=== PATIENT | female | born 1955 | race Caucasian/White ===

== ENCOUNTER 2021-01-08 00:40 | Inpatient (IN) | payer BC, OTHER ==
[2021-01-08] VITALS (7 sets, daily range): BP systolic 132–164; BP diastolic 55–90
[~2021-01-08] VITALS: Ht 167.6 cm; Wt 84.8 kg
[~2021-01-08 00:40] MED LIST: CIPRO500 MG PO; CLINDAMYCIN HC150 MG PO; DEPAKOTE ER500 MG PO; DEPAKOTE125 MG; GLIMEPIRIDE2 MG PO; LANTUS100 UNITS/ SQ; LEVAQUIN250 MG PO; LISINOPRIL2.5 MG PO; METFORMIN HCL500 MG PO; METOCLOPRAMIDE10 MG PO; MIDODRINE HCL2.5 MG PO; RENVELA800 MG PO; SENOKOT-S TABL1 EACH PO
[2021-01-08] MEDS: FENTANYL CITRATE/PF 100MCG/2 ML INJ IV PRN ×2 (02:10→04:04)
[2021-01-08 03:09] LABS: BASOPHILS # (AUTO) 0.1 (0.0-0.1); BASOPHILS % 0.6 % (0.0-1.0); EOSINOPHILS # (AUTO) 0.1 (0.0-0.4); EOSINOPHILS % 1.4 % (0.0-6.0); HEMATOCRIT 25.5 % (34.2-44.1); LYMPHOCYTES # (AUTO) 0.7 (1.0-3.2); LYMPHOCYTES % 8.8 % (18.0-39.1); MEAN CORPUSCULAR HGB CONC 31.4 g/dL (31-35); MEAN CORPUSCULAR VOLUME 95.5 fL (81-99); MONOCYTES # (AUTO) 0.4 (0.2-0.8); MONOCYTES % 4.9 % (4.4-11.3); NEUTROPHILS # (AUTO) 6.8 (2.1-6.9); NEUTROPHILS % 84.1 % (38.7-80.0); PLATELET COUNT 222 x10e3/uL (140-360); RED BLOOD COUNT 2.67 x10e6/uL (3.6-5.1); RED CELL DISTRIBUTION WIDTH 12.8 % (11.7-14.4)
[2021-01-08 03:19] LABS: INR 0.99; PROTHROMBIN TIME 13.7 seconds (11.9-14.5)
[2021-01-08] MEDS: SODIUM CHLORIDE 0.9% 1000ML 1,000 ML IV SCH ×3 (03:24→17:38)
[2021-01-08 03:28] LABS: ALBUMIN 3.4 g/dL (3.5-5.0); ALBUMIN/GLOBULIN RATIO 0.8 (0.8-2.0); ANION GAP 16.3 mmol/L (8-16); CALCIUM 8.5 mg/dL (8.4-10.2); CREATININE, SERUM 2.54 mg/dL (0.57-1.11); POTASSIUM 4.3 mmol/L (3.5-5.1)
[2021-01-08] MEDS ORDERED: LOPRESSOR25 MG PO (06:39)
[2021-01-08] MEDS ORDERED: GLIMEPIRIDE2 MG PO (06:39)
[2021-01-08 07:55] LABS: CHOL/HDL RATIO 5.1 (3.0-3.6)
[2021-01-08] MEDS: HYDROMORPHONE 1MG/1ML INJ IV PRN ×2 (08:00→19:10)
[2021-01-08] MEDS: ONDANSETRON HCL INJ 2MG/ML 2ML 2 MG/ML VIAL IV PRN (08:00)
[2021-01-08 08:05] LABS: % IRON SATURATION 5 % (15-50); IRON 15 ug/dL (50-170); TOTAL IRON BINDING CAPACITY 308 ug/dL (261-478); TRANSFERRIN 220 mg/dL (180-382)
[2021-01-08] MEDS ORDERED: HYDRALAZINE HCL25 MG PO (10:57)
[2021-01-08] MEDS ORDERED: ACTOS15 MG PO (10:57)
[2021-01-08] MEDS ORDERED: DEXTROSE 50% SYRINGE 50 ML IV PRN (11:30)
[2021-01-08] MEDS: METOPROLOL TARTRATE 25 MG TAB PO SCH ×2 (12:34→20:33)
[2021-01-08] MEDS: INSULIN LISPRO 100 UNIT/1 ML 3ML VIAL SQ SCH ×3 (12:45→21:00)
[2021-01-08] MEDS: IRON SUCROSE 100 MG in SODIUM CHLORIDE 0.9% 100 ML 100 ML IV SCH (15:43)
[2021-01-08] MEDS ORDERED: SODIUM CHLORIDE 0.9% 250ML 250 ML IV ONE (15:45)
[2021-01-08 16:09] LABS: BASOPHILS % 0.3 % (0.0-1.0); EOSINOPHILS # (AUTO) 0.1 (0.0-0.4); EOSINOPHILS % 0.8 % (0.0-6.0); HEMATOCRIT 23.4 % (34.2-44.1); HEMOGLOBIN 7.3 g/dL (12.0-16.0); LYMPHOCYTES # (AUTO) 0.8 (1.0-3.2); LYMPHOCYTES % 12.5 % (18.0-39.1); MEAN CORPUSCULAR HGB CONC 31.2 g/dL (31-35); MEAN CORPUSCULAR VOLUME 96.3 fL (81-99); MONOCYTES # (AUTO) 0.6 (0.2-0.8); MONOCYTES % 9.1 % (4.4-11.3); NEUTROPHILS # (AUTO) 4.7 (2.1-6.9); NEUTROPHILS % 77.1 % (38.7-80.0); PLATELET COUNT 204 x10e3/uL (140-360); RED BLOOD COUNT 2.43 x10e6/uL (3.6-5.1); RED CELL DISTRIBUTION WIDTH 13.1 % (11.7-14.4)
[2021-01-08 16:20] LABS: PROTHROMBIN TIME 13.8 seconds (11.9-14.5)
[2021-01-08 16:21] LABS: PARTIAL THROMBOPLASTIN TIME 30.8 seconds (23.8-35.5)
[2021-01-08 16:26] LABS: ANION GAP 13.7 mmol/L (8-16); CALCIUM 8.4 mg/dL (8.4-10.2); CREATININE, SERUM 2.47 mg/dL (0.57-1.11); POTASSIUM 4.7 mmol/L (3.5-5.1)
[2021-01-08] MEDS ORDERED: METOPROLOL TARTRATE 25 MG TAB PO SCH (17:00)
[2021-01-08] MEDS: SODIUM BICARBONATE 650 MG TAB PO SCH (17:32)
[2021-01-08] MEDS: HYDRALAZINE HCL 25 MG TAB PO SCH (20:30)
[2021-01-08] MEDS: DEPAKOTE DELAYED-RELEASE TAB 500 MG PO SCH (20:31)
[2021-01-09] VITALS (7 sets, daily range): BP systolic 125–146; BP diastolic 58–71
[2021-01-09] MEDS: SODIUM CHLORIDE 0.9% 1000ML 1,000 ML IV SCH ×3 (00:14→15:11)
[2021-01-09] MEDS: ONDANSETRON HCL INJ 2MG/ML 2ML 2 MG/ML VIAL IV PRN (05:13)
[2021-01-09] MEDS: HYDROMORPHONE 1MG/1ML INJ IV PRN (05:13)
[2021-01-09 07:29] LABS: BASOPHILS % 0.5 % (0.0-1.0); EOSINOPHILS # (AUTO) 0.1 (0.0-0.4); EOSINOPHILS % 1.7 % (0.0-6.0); HEMATOCRIT 24.3 % (34.2-44.1); HEMOGLOBIN 7.5 g/dL (12.0-16.0); LYMPHOCYTES # (AUTO) 1.3 (1.0-3.2); LYMPHOCYTES % 21.4 % (18.0-39.1); MEAN CORPUSCULAR HEMOGLOBIN 30.7 pg (28-32); MEAN CORPUSCULAR HGB CONC 30.9 g/dL (31-35); MEAN CORPUSCULAR VOLUME 99.6 fL (81-99); MONOCYTES # (AUTO) 0.4 (0.2-0.8); MONOCYTES % 7.4 % (4.4-11.3); NEUTROPHILS % 68.7 % (38.7-80.0); PLATELET COUNT 191 x10e3/uL (140-360); RED BLOOD COUNT 2.44 x10e6/uL (3.6-5.1); RED CELL DISTRIBUTION WIDTH 12.9 % (11.7-14.4)
[2021-01-09] MEDS: INSULIN LISPRO 100 UNIT/1 ML 3ML VIAL SQ SCH ×4 (07:30→21:26)
[2021-01-09 07:52] LABS: ALBUMIN/GLOBULIN RATIO 0.7 (0.8-2.0); ANION GAP 13.4 mmol/L (8-16); CALCIUM 8.1 mg/dL (8.4-10.2); CREATININE, SERUM 2.62 mg/dL (0.57-1.11); MAGNESIUM 1.8 MG/DL (1.3-2.1); POTASSIUM 4.4 mmol/L (3.5-5.1)
[2021-01-09 08:12] LABS: PHOSPHORUS 4.1 MG/DL (2.3-4.7)
[2021-01-09] MEDS: SODIUM BICARBONATE 650 MG TAB PO SCH ×2 (09:00→17:00)
[2021-01-09] MEDS: PIOGLITAZONE HCL 15 MG TAB PO SCH (09:00)
[2021-01-09] MEDS: METOPROLOL TARTRATE 25 MG TAB PO SCH ×2 (09:00→21:25)
[2021-01-09] MEDS ORDERED: SODIUM CHLORIDE 0.9% 250ML 250 ML ONE (09:31)
[2021-01-09] MEDS ORDERED: ACETAMINOPHEN 1000 MG/100 ML 100 ML IV ONE (12:05)
[2021-01-09] MEDS ORDERED: HYDROMORPHONE 1MG/1ML INJ ONE (12:34)
[2021-01-09] MEDS ORDERED: VANCOMYCIN HCL 1 GM VIAL ONE (12:45)
[2021-01-09] MEDS ORDERED: DEXAMETHASONE SOD PHOS INJ 4 MG/ML VIAL ONE (13:31)
[2021-01-09] MEDS ORDERED: CEFAZOLIN SOD 1 GM VIAL ONE (13:31)
[2021-01-09] MEDS ORDERED: NEOSTIGMINE 1 MG/ML 10ML VIAL ONE (13:31)
[2021-01-09] MEDS ORDERED: LIDOCAINE HCL 2% LOCAL INJ 5 ML SDV VIAL INJ ONE (13:31)
[2021-01-09] MEDS ORDERED: GLYCOPYRROLATE INJ 0.2 MG/ML VIAL ONE (13:31)
[2021-01-09] MEDS ORDERED: SEVOFLURANE INHAL SOLN 250 ML PEN BTL ONE (13:31)
[2021-01-09] MEDS ORDERED: ROCURONIUM BROMIDE 10 MG/ML 5ML VIAL IV ONE (13:31)
[2021-01-09] MEDS ORDERED: PROPOFOL IV EMULSION 10 MG/ML 20 ML VIAL ONE (13:31)
[2021-01-09] MEDS ORDERED: ONDANSETRON HCL INJ 2MG/ML 2ML 2 MG/ML VIAL ONE (13:31)
[2021-01-09] MEDS ORDERED: EPHEDRINE SULFATE INJ 50 MG/ML VIAL ONE (13:31)
[2021-01-09] MEDS ORDERED: FENTANYL CITRATE/PF 100MCG/2 ML INJ ONE (13:40)
[2021-01-09] MEDS ORDERED: HYDROCODONE/APAP 5MG-325MG TAB PO PRN (14:15)
[2021-01-09] MEDS ORDERED: HYDROCODONE/APAP 7.5MG-325MG 1 EA TAB PO PRN (14:15)
[2021-01-09 14:33] LABS: BASOPHILS % 0.4 % (0.0-1.0); EOSINOPHILS # (AUTO) 0.1 (0.0-0.4); EOSINOPHILS % 0.6 % (0.0-6.0); HEMATOCRIT 28.6 % (34.2-44.1); HEMOGLOBIN 8.9 g/dL (12.0-16.0); LYMPHOCYTES % 9.6 % (18.0-39.1); MEAN CORPUSCULAR HGB CONC 31.1 g/dL (31-35); MEAN CORPUSCULAR VOLUME 96.3 fL (81-99); MONOCYTES # (AUTO) 0.3 (0.2-0.8); MONOCYTES % 3.3 % (4.4-11.3); NEUTROPHILS # (AUTO) 8.7 (2.1-6.9); NEUTROPHILS % 85.5 % (38.7-80.0); PLATELET COUNT 208 x10e3/uL (140-360); RED BLOOD COUNT 2.97 x10e6/uL (3.6-5.1)
[2021-01-09 15:01] LABS: ANION GAP 16.8 mmol/L (8-16); CALCIUM 7.8 mg/dL (8.4-10.2); CREATININE, SERUM 2.85 mg/dL (0.57-1.11); POTASSIUM 4.8 mmol/L (3.5-5.1)
[2021-01-09] MEDS: IRON SUCROSE 100 MG in SODIUM CHLORIDE 0.9% 100 ML 100 ML IV SCH (15:08)
[2021-01-09] MEDS ORDERED: TRAMADOL HCL 50 MG TAB PO PRN ×2 (19:15)
[2021-01-09] MEDS: HYDRALAZINE HCL 25 MG TAB PO SCH (21:25)
[2021-01-09] MEDS: DEPAKOTE DELAYED-RELEASE TAB 500 MG PO SCH (21:25)
[2021-01-09] MEDS: CEFAZOLIN SOD 2 GM/D5W 50ML 50 ML IV SCH (21:25)
[2021-01-09] MEDS ORDERED: CEFAZOLIN SOD 1 GM VIAL IV SCH (22:00)
[2021-01-10] VITALS (7 sets, daily range): BP systolic 104–135; BP diastolic 60–70
[2021-01-10] MEDS: ONDANSETRON HCL INJ 2MG/ML 2ML 2 MG/ML VIAL IV PRN ×4 (00:04→23:59)
[2021-01-10] MEDS: HYDROMORPHONE 1MG/1ML INJ IV PRN ×4 (00:04→23:59)
[2021-01-10 05:25] LABS: BASOPHILS % 0.4 % (0.0-1.0); EOSINOPHILS % 0.1 % (0.0-6.0); LYMPHOCYTES # (AUTO) 0.9 (1.0-3.2); LYMPHOCYTES % 12.2 % (18.0-39.1); MEAN CORPUSCULAR HEMOGLOBIN 29.8 pg (28-32); MEAN CORPUSCULAR HGB CONC 31.3 g/dL (31-35); MEAN CORPUSCULAR VOLUME 95.1 fL (81-99); MONOCYTES % 13.7 % (4.4-11.3); NEUTROPHILS # (AUTO) 5.3 (2.1-6.9); NEUTROPHILS % 73.2 % (38.7-80.0); PLATELET COUNT 207 x10e3/uL (140-360); RED BLOOD COUNT 2.25 x10e6/uL (3.6-5.1); RED CELL DISTRIBUTION WIDTH 14.2 % (11.7-14.4)
[2021-01-10 05:29] LABS: HEMATOCRIT 21.4 % (34.2-44.1); HEMOGLOBIN 6.7 g/dL (12.0-16.0)
[2021-01-10] MEDS: SODIUM CHLORIDE 0.9% 1000ML 1,000 ML IV SCH (05:43)
[2021-01-10 05:49] LABS: ALBUMIN 2.5 g/dL (3.5-5.0); ALBUMIN/GLOBULIN RATIO 0.6 (0.8-2.0); ANION GAP 15.4 mmol/L (8-16); CALCIUM 7.5 mg/dL (8.4-10.2); CREATININE, SERUM 3.1 mg/dL (0.57-1.11); MAGNESIUM 1.8 MG/DL (1.3-2.1); POTASSIUM 5.4 mmol/L (3.5-5.1)
[2021-01-10] MEDS: CEFAZOLIN SOD 2 GM/D5W 50ML 50 ML IV SCH ×2 (05:53→13:22)
[2021-01-10] MEDS ORDERED: SODIUM CHLORIDE 0.9% 250ML 250 ML IV SCH (06:30)
[2021-01-10] MEDS ORDERED: SODIUM CHLORIDE 0.9% 250ML 250 ML ONE (07:03)
[2021-01-10] MEDS: INSULIN LISPRO 100 UNIT/1 ML 3ML VIAL SQ SCH ×4 (07:30→21:25)
[2021-01-10] MEDS: PIOGLITAZONE HCL 15 MG TAB PO SCH (08:59)
[2021-01-10] MEDS: METOPROLOL TARTRATE 25 MG TAB PO SCH ×2 (09:00→21:01)
[2021-01-10] MEDS: SODIUM BICARBONATE 650 MG TAB PO SCH ×2 (09:01→18:00)
[2021-01-10] MEDS: SODIUM BICARBONATE 8.4% SYRING 150 ML in DEXTROSE 5% 1,000 ML IV SCH (14:30)
[2021-01-10] MEDS ORDERED: SOD POLYSTYRENE SULFONATE SUSP 15 GM/60 ML BTL PO ONE (14:30)
[2021-01-10] MEDS ORDERED: LACTULOSE SYRUP 20 GM/30 ML UDC PO ONE (14:30)
[2021-01-10] MEDS: IRON SUCROSE 100 MG in SODIUM CHLORIDE 0.9% 100 ML 100 ML IV SCH (14:45)
[2021-01-10] MEDS: ENOXAPARIN SOD INJ 40 MG/0.4 ML SYR SC SCH (18:00)
[2021-01-10] MEDS: DEPAKOTE DELAYED-RELEASE TAB 500 MG PO SCH (21:00)
[2021-01-10] MEDS: HYDRALAZINE HCL 25 MG TAB PO SCH (21:00)
[2021-01-11] VITALS (9 sets, daily range): BP systolic 12–142; BP diastolic 56–61
[2021-01-11] MEDS: SODIUM BICARBONATE 8.4% SYRING 150 ML in DEXTROSE 5% 1,000 ML IV SCH ×2 (01:59→13:30)
[2021-01-11 07:00] LABS: BASOPHILS % 0.5 % (0.0-1.0); EOSINOPHILS # (AUTO) 0.1 (0.0-0.4); EOSINOPHILS % 1.4 % (0.0-6.0); LYMPHOCYTES # (AUTO) 0.9 (1.0-3.2); LYMPHOCYTES % 13.8 % (18.0-39.1); MEAN CORPUSCULAR HGB CONC 31.6 g/dL (31-35); MEAN CORPUSCULAR VOLUME 95.1 fL (81-99); MONOCYTES # (AUTO) 0.9 (0.2-0.8); MONOCYTES % 13.8 % (4.4-11.3); NEUTROPHILS # (AUTO) 4.4 (2.1-6.9); NEUTROPHILS % 69.9 % (38.7-80.0); PLATELET COUNT 159 x10e3/uL (140-360); RED BLOOD COUNT 2.03 x10e6/uL (3.6-5.1); RED CELL DISTRIBUTION WIDTH 14.7 % (11.7-14.4)
[2021-01-11] MEDS: INSULIN LISPRO 100 UNIT/1 ML 3ML VIAL SQ SCH ×4 (07:30→20:50)
[2021-01-11 07:35] LABS: HEMATOCRIT 19.3 % (34.2-44.1); HEMOGLOBIN 6.1 g/dL (12.0-16.0)
[2021-01-11 07:56] LABS: ALBUMIN 2.2 g/dL (3.5-5.0); ALBUMIN/GLOBULIN RATIO 0.6 (0.8-2.0); ALKALINE PHOSPHATASE 50 IU/L (40-150); BLOOD UREA NITROGEN 32 mg/dL (7-26); BUN/CREATININE RATIO 10 (6-25); CALCIUM 7.1 mg/dL (8.4-10.2); CARBON DIOXIDE 22 mmol/L (22-29); CHLORIDE 108 mmol/L (98-107); CREATININE, SERUM 3.13 mg/dL (0.57-1.11); EST GLOMERULAR FILTRATION RATE 15 ML/MIN (60-); GLUCOSE 128 mg/dL (74-118); SODIUM 143 mmol/L (136-145)
[2021-01-11 07:58] LABS: ALANINE AMINOTRANSFERASE < 6 IU/L (0-55)
[2021-01-11] MEDS ORDERED: SODIUM CHLORIDE 0.9% 250ML 250 ML IV ONE (08:35)
[2021-01-11] MEDS: SODIUM BICARBONATE 650 MG TAB PO SCH ×2 (09:08→17:08)
[2021-01-11] MEDS: METOPROLOL TARTRATE 25 MG TAB PO SCH ×2 (09:08→20:42)
[2021-01-11] MEDS: ONDANSETRON HCL INJ 2MG/ML 2ML 2 MG/ML VIAL IV PRN ×2 (09:14→19:18)
[2021-01-11] MEDS: HYDROMORPHONE 1MG/1ML INJ IV PRN ×2 (09:14→19:25)
[2021-01-11] MEDS ORDERED: SODIUM CHLORIDE 0.9% 250ML 250 ML ONE (12:56)
[2021-01-11] MEDS: IRON SUCROSE 100 MG in SODIUM CHLORIDE 0.9% 100 ML 100 ML IV SCH (15:03)
[2021-01-11] MEDS: ENOXAPARIN SOD INJ 40 MG/0.4 ML SYR SC SCH (17:09)
[2021-01-11] MEDS: HYDRALAZINE HCL 25 MG TAB PO SCH (20:42)
[2021-01-11] MEDS: DEPAKOTE DELAYED-RELEASE TAB 500 MG PO SCH (20:42)
[2021-01-12] VITALS (8 sets, daily range): BP systolic 116–138; BP diastolic 52–62
[2021-01-12] MEDS: SODIUM BICARBONATE 8.4% SYRING 150 ML in DEXTROSE 5% 1,000 ML IV SCH ×3 (03:09→23:49)
[2021-01-12] MEDS: ONDANSETRON HCL INJ 2MG/ML 2ML 2 MG/ML VIAL IV PRN ×3 (03:49→21:05)
[2021-01-12] MEDS: HYDROMORPHONE 1MG/1ML INJ IV PRN ×3 (03:54→21:05)
[2021-01-12 04:52] LABS: BASOPHILS % 0.3 % (0.0-1.0); EOSINOPHILS # (AUTO) 0.1 (0.0-0.4); EOSINOPHILS % 1.9 % (0.0-6.0); HEMOGLOBIN 7.2 g/dL (12.0-16.0); LYMPHOCYTES # (AUTO) 0.8 (1.0-3.2); LYMPHOCYTES % 13.1 % (18.0-39.1); MEAN CORPUSCULAR HGB CONC 32.6 g/dL (31-35); MEAN CORPUSCULAR VOLUME 95.3 fL (81-99); MONOCYTES # (AUTO) 0.7 (0.2-0.8); MONOCYTES % 11.7 % (4.4-11.3); NEUTROPHILS # (AUTO) 4.6 (2.1-6.9); NEUTROPHILS % 72.2 % (38.7-80.0); PLATELET COUNT 141 x10e3/uL (140-360); RED BLOOD COUNT 2.32 x10e6/uL (3.6-5.1); RED CELL DISTRIBUTION WIDTH 13.8 % (11.7-14.4)
[2021-01-12 04:55] LABS: HEMATOCRIT 22.1 % (34.2-44.1)
[2021-01-12 05:14] LABS: ANION GAP 12.3 mmol/L (8-16); CREATININE, SERUM 2.72 mg/dL (0.57-1.11); POTASSIUM 3.3 mmol/L (3.5-5.1)
[2021-01-12] MEDS: INSULIN LISPRO 100 UNIT/1 ML 3ML VIAL SQ SCH ×4 (07:30→21:31)
[2021-01-12] MEDS: SODIUM BICARBONATE 650 MG TAB PO SCH ×2 (08:54→16:54)
[2021-01-12] MEDS: METOPROLOL TARTRATE 25 MG TAB PO SCH ×2 (08:54→21:14)
[2021-01-12] MEDS ORDERED: POTASSIUM CHLORIDE 20 MEQ TAB CR PO ONE (10:30)
[2021-01-12] MEDS: IRON SUCROSE 100 MG in SODIUM CHLORIDE 0.9% 100 ML 100 ML IV SCH (14:08)
[2021-01-12] MEDS: ENOXAPARIN SOD INJ 40 MG/0.4 ML SYR SC SCH (16:54)
[2021-01-12] MEDS ORDERED: ACETAMINOPHEN 325 MG TAB PO PRN (20:45)
[2021-01-12] MEDS: HYDRALAZINE HCL 25 MG TAB PO SCH (21:00)
[2021-01-12] MEDS: DEPAKOTE DELAYED-RELEASE TAB 500 MG PO SCH (21:13)
[2021-01-13] VITALS (7 sets, daily range): BP systolic 122–135; BP diastolic 52–63
[2021-01-13] MEDS: HYDROMORPHONE 1MG/1ML INJ IV PRN ×3 (03:20→22:00)
[2021-01-13] MEDS: ONDANSETRON HCL INJ 2MG/ML 2ML 2 MG/ML VIAL IV PRN ×2 (03:20→22:00)
[2021-01-13 05:10] LABS: BASOPHILS % 0.5 % (0.0-1.0); EOSINOPHILS # (AUTO) 0.1 (0.0-0.4); EOSINOPHILS % 1.9 % (0.0-6.0); HEMATOCRIT 22.5 % (34.2-44.1); LYMPHOCYTES # (AUTO) 0.8 (1.0-3.2); LYMPHOCYTES % 13.4 % (18.0-39.1); MEAN CORPUSCULAR HGB CONC 31.1 g/dL (31-35); MEAN CORPUSCULAR VOLUME 96.6 fL (81-99); MONOCYTES # (AUTO) 0.6 (0.2-0.8); MONOCYTES % 10.2 % (4.4-11.3); NEUTROPHILS # (AUTO) 4.3 (2.1-6.9); NEUTROPHILS % 72.8 % (38.7-80.0); PLATELET COUNT 183 x10e3/uL (140-360); RED BLOOD COUNT 2.33 x10e6/uL (3.6-5.1); RED CELL DISTRIBUTION WIDTH 13.8 % (11.7-14.4)
[2021-01-13 05:24] LABS: ANION GAP 12.6 mmol/L (8-16); CALCIUM 7.1 mg/dL (8.4-10.2); CREATININE, SERUM 2.53 mg/dL (0.57-1.11); POTASSIUM 3.6 mmol/L (3.5-5.1)
[2021-01-13] MEDS: INSULIN LISPRO 100 UNIT/1 ML 3ML VIAL SQ SCH ×4 (07:30→20:35)
[2021-01-13] MEDS: SODIUM BICARBONATE 650 MG TAB PO SCH (08:15)
[2021-01-13] MEDS: METOPROLOL TARTRATE 25 MG TAB PO SCH ×2 (08:15→22:18)
[2021-01-13] MEDS: SODIUM BICARBONATE 8.4% SYRING 150 ML in DEXTROSE 5% 1,000 ML IV SCH (10:30)
[2021-01-13] MEDS: IRON SUCROSE 100 MG in SODIUM CHLORIDE 0.9% 100 ML 100 ML IV SCH (14:55)
[2021-01-13] MEDS: ENOXAPARIN SOD INJ 40 MG/0.4 ML SYR SC SCH (17:27)
[2021-01-13] MEDS: DEPAKOTE DELAYED-RELEASE TAB 500 MG PO SCH (22:17)
[2021-01-13] MEDS: HYDRALAZINE HCL 25 MG TAB PO SCH (22:17)
[2021-01-14] VITALS (7 sets, daily range): BP systolic 125–134; BP diastolic 58–61
[2021-01-14] MEDS: HYDROMORPHONE 1MG/1ML INJ IV PRN ×2 (05:30→16:13)
[2021-01-14] MEDS: ONDANSETRON HCL INJ 2MG/ML 2ML 2 MG/ML VIAL IV PRN ×2 (05:30→16:13)
[2021-01-14 05:50] LABS: BASOPHILS % 0.7 % (0.0-1.0); EOSINOPHILS # (AUTO) 0.2 (0.0-0.4); HEMATOCRIT 23.3 % (34.2-44.1); HEMOGLOBIN 7.1 g/dL (12.0-16.0); LYMPHOCYTES # (AUTO) 1.1 (1.0-3.2); LYMPHOCYTES % 18.4 % (18.0-39.1); MEAN CORPUSCULAR HGB CONC 30.5 g/dL (31-35); MEAN CORPUSCULAR VOLUME 98.3 fL (81-99); MONOCYTES # (AUTO) 0.6 (0.2-0.8); NEUTROPHILS # (AUTO) 3.8 (2.1-6.9); NEUTROPHILS % 67.4 % (38.7-80.0); PLATELET COUNT 209 x10e3/uL (140-360); RED BLOOD COUNT 2.37 x10e6/uL (3.6-5.1); RED CELL DISTRIBUTION WIDTH 13.8 % (11.7-14.4)
[2021-01-14 06:26] LABS: ANION GAP 12.4 mmol/L (8-16); CALCIUM 7.6 mg/dL (8.4-10.2); CREATININE, SERUM 2.39 mg/dL (0.57-1.11); POTASSIUM 3.4 mmol/L (3.5-5.1)
[2021-01-14] MEDS: INSULIN LISPRO 100 UNIT/1 ML 3ML VIAL SQ SCH ×4 (07:30→20:54)
[2021-01-14] MEDS: METOPROLOL TARTRATE 25 MG TAB PO SCH (08:07)
[2021-01-14] MEDS: IRON SUCROSE 100 MG in SODIUM CHLORIDE 0.9% 100 ML 100 ML IV SCH (14:26)
[2021-01-14] MEDS: ENOXAPARIN SOD INJ 40 MG/0.4 ML SYR SC SCH (16:13)
[2021-01-14] MEDS ORDERED: DEXTROSE 5% 1,000 ML IV ONE (17:00)
[2021-01-14] MEDS ORDERED: POTASSIUM CHLORIDE 20 MEQ TAB CR PO ONE (17:30)
[2021-01-15] MEDS ORDERED: IRON-VITAMIN-MINERAL CAPSULE PO SCH (09:00)
[2021-01-15] MEDS ORDERED: DULOXETINE HCL 20 MG DELAYED RELEASE PO SCH (09:00)
== END 2021-01-14 21:29 | DRG 481 ==
LOC: ER 00:48 → ERHOLD 02:55 → MED/SURG 05:20
PROVIDERS: ADMIT Family Medicine; ATTEND Family Medicine
PROC: 30233N1 Transfusion of Nonautologous Red Blood Cells into Peripheral Vein, Percutaneous Approach (ICD-10-PCS; 2021-01-09)
PROC: 0QSC04Z Reposition Left Lower Femur with Internal Fixation Device, Open Approach (ICD-10-PCS; principal; 2021-01-09 10:00)
DX: S72.392A Other fracture of shaft of left femur, initial encounter for closed fracture (principal); M97.02XA Periprosthetic fracture around internal prosthetic left hip joint, initial encounter; N17.9 Acute kidney failure, unspecified; N18.4 Chronic kidney disease, stage 4 (severe); D62 Acute posthemorrhagic anemia; E11.22 Type 2 diabetes mellitus with diabetic chronic kidney disease; F31.9 Bipolar disorder, unspecified; I10 Essential (primary) hypertension; E78.5 Hyperlipidemia, unspecified; M19.90 Unspecified osteoarthritis, unspecified site; I12.9 Hypertensive chronic kidney disease with stage 1 through stage 4 chronic kidney disease, or unspecified chronic kidney disease; Z89.619 Acquired absence of unspecified leg above knee; W19.XXXA Unspecified fall, initial encounter; Z20.822 Contact with and (suspected) exposure to COVID-19
CPT/HCPCS: 36415; 70450; 71045; 76000; 76770; 80048; 80053; 80061; 82948; 83036; 83540; 83735; 83970; 84100; 84165; 84466; 84550; 85025; 85610; 85730; 86850; 86870; 86880; 86900; 86905; 86920; 86922; 93041; 93306; 97139; 99001; 99285; C1713; J0690; J1100; J1170; J1650; J1756; J2001; J2405; J2710; J3010; J3370; J7030; J7050; J7070; P9016; U0002

== ENCOUNTER → 2021-05-23 | Emergency (ER) | payer BC ==
[~2021-05-23] VITALS: Ht 167.6 cm; Wt 84.8 kg
[~2021-05-23] MED LIST changes: +ACTOS15 MG PO; +CEFEPIME 1 GM in SODIUM CHLORIDE 0.9% 50ML 50 ML IV ONE; +HYDRALAZINE HCL25 MG PO; +IOPAMIDOL 370 MG/ML 200 ML INFUS..BTL INJ ONE; +LOPRESSOR25 MG PO; +ONDANSETRON HCL INJ 2MG/ML 2ML 2 MG/ML VIAL IV STA; +SODIUM CHLORIDE 0.9% 1000ML 1,000 ML IV ONE; +SODIUM CHLORIDE 0.9% 1000ML 1,000 ML IV STA; +SODIUM CHLORIDE 0.9% 1000ML 2,000 ML ONE; +SODIUM CHLORIDE 0.9% 50ML 50 ML ONE
[2021-05-23 19:46] LABS: BASOPHILS # (AUTO) 0.1 (0.0-0.1); BASOPHILS % 1.1 % (0.0-1.0); EOSINOPHILS # (AUTO) 0.1 (0.0-0.4); EOSINOPHILS % 1.1 % (0.0-6.0); HEMATOCRIT 39.7 % (34.2-44.1); HEMOGLOBIN 12.6 g/dL (12.0-16.0); LYMPHOCYTES # (AUTO) 1.2 (1.0-3.2); LYMPHOCYTES % 28.2 % (18.0-39.1); MEAN CORPUSCULAR HEMOGLOBIN 31.3 pg (28-32); MEAN CORPUSCULAR HGB CONC 31.7 g/dL (31-35); MEAN CORPUSCULAR VOLUME 98.5 fL (81-99); MONOCYTES # (AUTO) 0.3 (0.2-0.8); MONOCYTES % 6.4 % (4.4-11.3); NEUTROPHILS # (AUTO) 2.8 (2.1-6.9); NEUTROPHILS % 62.7 % (38.7-80.0); PLATELET COUNT 276 x10e3/uL (140-360); RED BLOOD COUNT 4.03 x10e6/uL (3.6-5.1); RED CELL DISTRIBUTION WIDTH 13.3 % (11.7-14.4)
[2021-05-23 20:10] LABS: ALBUMIN/GLOBULIN RATIO 0.7 (0.8-2.0); ANION GAP 23.4 mmol/L (8-16); CALCIUM 8.6 mg/dL (8.4-10.2); CREATININE, SERUM 1.72 mg/dL (0.57-1.11); POTASSIUM 3.4 mmol/L (3.5-5.1)
[2021-05-23 20:17] LABS: CREATINE KINASE MB 2.8 ng/mL (0-5.0)
[2021-05-23 21:06] LABS: CLARITY,URINE SL CLOUDY (CLEAR); COLOR,URINE STRAW (YELLOW); KETONES,URINE 2+ (NEGATIVE); LEUKOCYTE ESTERASE ,URINE SMALL (NEGATIVE); NITRITE,URINE NEGATIVE (NEGATIVE); PROTEIN,URINE DIPSTICK 2+ (NEGATIVE); URINE UROBILINOGEN 1 mg/dL (0.2 - 1)
[2021-05-23 21:18] LABS: BACTERIA,URINE MANY /HPF; EPITHELIAL CELLS,URINE FEW /LPF
== END | disposition home or self-care (01) ==
LOC: ER 20:00
DX: J18.9 Pneumonia, unspecified organism (principal); N39.0 Urinary tract infection, site not specified; Z20.822 Contact with and (suspected) exposure to COVID-19; I10 Essential (primary) hypertension; D11.9 Benign neoplasm of major salivary gland, unspecified; D64.9 Anemia, unspecified; Z88.5 Allergy status to narcotic agent; Z88.8 Allergy status to other drugs, medicaments and biological substances
CPT/HCPCS: 36415; 71045; 74177; 80053; 81001; 82550; 82553; 83605; 83690; 83880; 84484; 85025; 87040; 93005; J0692; J7030; Q9967; U0002; 99283; J2405

== ENCOUNTER 2021-06-28 17:30 | Emergency (ER) | payer BC ==
[~2021-06-28] VITALS: Ht 167.6 cm; Wt 84.8 kg
[~2021-06-28 17:30] MED LIST changes: -CEFEPIME 1 GM in SODIUM CHLORIDE 0.9% 50ML 50 ML IV ONE; -IOPAMIDOL 370 MG/ML 200 ML INFUS..BTL INJ ONE; -ONDANSETRON HCL INJ 2MG/ML 2ML 2 MG/ML VIAL IV STA; -SODIUM CHLORIDE 0.9% 1000ML 1,000 ML IV ONE; -SODIUM CHLORIDE 0.9% 1000ML 1,000 ML IV STA; -SODIUM CHLORIDE 0.9% 1000ML 2,000 ML ONE; -SODIUM CHLORIDE 0.9% 50ML 50 ML ONE
== END 2021-06-28 23:30 | disposition home or self-care (01) ==
LOC: ER 17:54
DX: R60.9 Edema, unspecified (principal); M79.89 Other specified soft tissue disorders; I10 Essential (primary) hypertension; E11.9 Type 2 diabetes mellitus without complications; D64.9 Anemia, unspecified; F31.9 Bipolar disorder, unspecified
CPT/HCPCS: 93970; 99283

== ENCOUNTER 2023-04-17 07:45 | Inpatient (IN) | payer BC, MEDICARE ==
[~2023-04-17] VITALS: Ht 167.6 cm; Wt 85.3 kg
[2023-04-17] MEDS ORDERED: FAMOTIDINE 20 MG/2 ML VIAL IV STA (07:57)
[2023-04-17] MEDS ORDERED: ONDANSETRON HCL INJ 2MG/ML 2ML 2 MG/ML VIAL IV STA (07:57)
[2023-04-17] MEDS: LACTATED RINGER'S 1,000 ML INJ SCH ×3 (08:19→21:55)
[2023-04-17 08:25] LABS: BASOPHILS % 0.5 % (0.0-1.0); EOSINOPHILS % 0.1 % (0.0-6.0); HEMATOCRIT 36.5 % (34.2-44.1); HEMOGLOBIN 11.5 g/dL (12.0-16.0); LYMPHOCYTES # (AUTO) 2.4 (1.0-3.2); LYMPHOCYTES % 28.1 % (18.0-39.1); MEAN CORPUSCULAR HGB CONC 31.5 g/dL (31-35); MEAN CORPUSCULAR VOLUME 98.4 fL (81-99); MONOCYTES # (AUTO) 0.4 (0.2-0.8); MONOCYTES % 4.8 % (4.4-11.3); NEUTROPHILS # (AUTO) 5.6 (2.1-6.9); NEUTROPHILS % 65.1 % (38.7-80.0); PLATELET COUNT 172 x10e3/uL (140-360); RED BLOOD COUNT 3.71 x10e6/uL (3.6-5.1); RED CELL DISTRIBUTION WIDTH 14.1 % (11.7-14.4)
[2023-04-17 08:48] LABS: CLARITY,URINE CLOUDY (CLEAR); COLOR,URINE YELLOW (YELLOW); LEUKOCYTE ESTERASE ,URINE LARGE (NEGATIVE)
[2023-04-17 08:49] LABS: KETONES,URINE TRACE (NEGATIVE); NITRITE,URINE NEGATIVE (NEGATIVE); PROTEIN,URINE DIPSTICK >=300 (NEGATIVE); URINE UROBILINOGEN 0.2 mg/dL (0.2 - 1)
[2023-04-17 08:52] LABS: WBC,URINE (MAN) >50 /HPF (0-5)
[2023-04-17 08:53] LABS: BACTERIA,URINE MANY /HPF; EPITHELIAL CELLS,URINE MODERATE /LPF; RBC,URINE 21-50 /HPF (0-5)
[2023-04-17 08:59] LABS: ANION GAP 20.1 mmol/L (8-16); CALCIUM 8.9 mg/dL (8.4-10.2); CREATININE, SERUM 4.56 mg/dL (0.57-1.11); POTASSIUM 4.1 mmol/L (3.5-5.1)
[2023-04-17] MEDS ORDERED: SODIUM CHLORIDE FLUSH 10 ML SYR INJ PRN (09:45)
[2023-04-17 12:53] VITALS: BP 134/82; PULSE 85; RESP 16; TEMP 98.2; O2SAT 100
[2023-04-17 14:45] VITALS: BP 134/82; PULSE 85; RESP 16; TEMP 98.2; O2SAT 100
[2023-04-17] MEDS ORDERED: JARDIANCE25 MG PO (14:55)
[2023-04-17] MEDS ORDERED: LEVOTHYROXINE175 MCG PO (14:58)
[2023-04-17 16:52] VITALS: BP 112/64; PULSE 87; RESP 18; TEMP 98.7; O2SAT 98
[2023-04-17 20:00] VITALS: BP 106/67; PULSE 92; RESP 16; TEMP 99.5; O2SAT 98
[2023-04-17 21:00] VITALS: BP 106/67; PULSE 92; RESP 16; TEMP 99.5; O2SAT 97
[2023-04-18] MEDS: LACTATED RINGER'S 1,000 ML INJ SCH ×3 (02:58→15:43)
[2023-04-18 05:58] LABS: BASOPHILS # (AUTO) 0.1 (0.0-0.1); EOSINOPHILS % 0.6 % (0.0-6.0); HEMATOCRIT 30.9 % (34.2-44.1); HEMOGLOBIN 9.4 g/dL (12.0-16.0); LYMPHOCYTES # (AUTO) 2.4 (1.0-3.2); LYMPHOCYTES % 33.9 % (18.0-39.1); MEAN CORPUSCULAR HGB CONC 30.4 g/dL (31-35); MONOCYTES # (AUTO) 0.4 (0.2-0.8); NEUTROPHILS # (AUTO) 4.1 (2.1-6.9); NEUTROPHILS % 57.5 % (38.7-80.0); PLATELET COUNT 155 x10e3/uL (140-360); RED BLOOD COUNT 3.03 x10e6/uL (3.6-5.1); RED CELL DISTRIBUTION WIDTH 14.1 % (11.7-14.4)
[2023-04-18 06:24] LABS: ANION GAP 17.3 mmol/L (8-16); CALCIUM 8.2 mg/dL (8.4-10.2); CREATININE, SERUM 3.98 mg/dL (0.57-1.11); POTASSIUM 4.3 mmol/L (3.5-5.1)
[2023-04-18 06:57] LABS: MAGNESIUM 2.2 MG/DL (1.3-2.1); PHOSPHORUS 2.6 MG/DL (2.3-4.7)
[2023-04-18 08:24] VITALS: BP 111/71; PULSE 83; RESP 16; TEMP 98.6; O2SAT 97
[2023-04-18 08:33] LABS: BAND NEUTROPHILS % (MANUAL) 3 %; LYMPHOCYTES % (MANUAL) 25 % (19-48); METAMYELOCYTES % (MANUAL) 3 % (0-0); MONOCYTES % (MANUAL) 6 % (3.4-9.0); NEUTROPHILS % (MANUAL) 62 % (40-74); PLATELET ESTIMATE ADEQUATE; PLATELET MORPHOLOGY COMMENT NORMAL; RBC MORPHOLOGY COMMENT NORMAL
[2023-04-18] MEDS: METOPROLOL TARTRATE 25 MG TAB PO SCH ×2 (08:34→16:30)
[2023-04-18 08:55] VITALS: BP 111/71; PULSE 83; RESP 16; TEMP 98.6; O2SAT 97
[2023-04-18 12:46] VITALS: BP 124/76; PULSE 71; RESP 18; TEMP 98.9; O2SAT 98
[2023-04-18 20:21] VITALS: BP 111/58; PULSE 69; RESP 17; TEMP 99.9; O2SAT 95
[2023-04-18 21:00] VITALS: BP 111/58; PULSE 69; RESP 17; TEMP 99.9; O2SAT 95
[2023-04-18] MEDS: DEPAKOTE DELAYED-RELEASE TAB 500 MG PO SCH (21:13)
[2023-04-19] VITALS (8 sets, daily range): BP systolic 105–126; BP diastolic 55–66; PULSE 60–74; RESP 16–20; TEMP 97.9–99; O2SAT 91–97
[2023-04-19] MEDS: LACTATED RINGER'S 1,000 ML INJ SCH ×4 (00:14→21:43)
[2023-04-19 05:31] LABS: PHOSPHORUS 2.1 MG/DL (2.3-4.7)
[2023-04-19 08:01] LABS: ANION GAP 14.1 mmol/L (8-16); CREATININE, SERUM 3.32 mg/dL (0.57-1.11); POTASSIUM 4.1 mmol/L (3.5-5.1)
[2023-04-19] MEDS: METOPROLOL TARTRATE 25 MG TAB PO SCH ×2 (08:07→16:09)
[2023-04-19] MEDS: DEPAKOTE DELAYED-RELEASE TAB 500 MG PO SCH (21:08)
[2023-04-20] VITALS (8 sets, daily range): BP systolic 106–144; BP diastolic 63–90; PULSE 56–67; RESP 16–20; TEMP 97.6–99; O2SAT 95–100
[2023-04-20] MEDS: LACTATED RINGER'S 1,000 ML INJ SCH ×4 (02:40→23:22)
[2023-04-20 07:55] LABS: CALCIUM 7.8 mg/dL (8.4-10.2); CREATININE, SERUM 2.67 mg/dL (0.57-1.11)
[2023-04-20] MEDS: METOPROLOL TARTRATE 25 MG TAB PO SCH ×2 (08:21→17:00)
[2023-04-20] MEDS: DEPAKOTE DELAYED-RELEASE TAB 500 MG PO SCH (20:44)
[2023-04-21] VITALS (7 sets, daily range): BP systolic 114–204; BP diastolic 61–101; PULSE 59–65; RESP 16–18; TEMP 98–98.4; O2SAT 96–100
[2023-04-21] MEDS: LACTATED RINGER'S 1,000 ML INJ SCH (05:58)
[2023-04-21] MEDS: SODIUM BICARBONATE 8.4% 50 ML in SODIUM CHLORIDE 0.45% 1,000 ML IV SCH ×3 (09:26→20:44)
[2023-04-21] MEDS: METOPROLOL TARTRATE 25 MG TAB PO SCH ×2 (09:26→17:00)
[2023-04-21 14:43] LABS: ANION GAP 14.1 mmol/L (8-16); CALCIUM 7.8 mg/dL (8.4-10.2); CREATININE, SERUM 2.24 mg/dL (0.57-1.11); POTASSIUM 4.1 mmol/L (3.5-5.1)
[2023-04-21] MEDS: DEPAKOTE DELAYED-RELEASE TAB 500 MG PO SCH (20:43)
[2023-04-22] VITALS (8 sets, daily range): BP systolic 117–146; BP diastolic 59–83; PULSE 57–67; RESP 16–20; TEMP 97.8–98.4; O2SAT 93–100
[2023-04-22] MEDS: SODIUM BICARBONATE 8.4% 50 ML in SODIUM CHLORIDE 0.45% 1,000 ML IV SCH ×5 (05:55→20:54)
[2023-04-22 07:43] LABS: ANION GAP 15.7 mmol/L (8-16); CALCIUM 7.8 mg/dL (8.4-10.2); CREATININE, SERUM 2.03 mg/dL (0.57-1.11); POTASSIUM 3.7 mmol/L (3.5-5.1)
[2023-04-22] MEDS: METOPROLOL TARTRATE 25 MG TAB PO SCH ×2 (09:11→16:29)
[2023-04-22 14:14] LABS: CHOL/HDL RATIO 20.5 (3.0-3.6); CHOLESTEROL 225 MD/DL (0-199); HDL CHOLESTEROL 11 MG/DL (40-60); TRIGLYCERIDES 550 MG/DL (0-149)
[2023-04-22] MEDS ORDERED: SODIUM CHLORIDE 0.9% 1000ML 1,000 ML IV ONE ×2 (16:15→16:30)
[2023-04-22] MEDS: DEPAKOTE DELAYED-RELEASE TAB 500 MG PO SCH (20:54)
[2023-04-23] VITALS: BP 135/63; PULSE 57; RESP 16; TEMP 98.2; O2SAT 94
[2023-04-23] MEDS: SODIUM CHLORIDE 0.9% 1000ML 1,000 ML IV SCH ×4 (03:41→12:41)
[2023-04-23 06:05] LABS: ANION GAP 12.1 mmol/L (8-16); CALCIUM 7.1 mg/dL (8.4-10.2); CREATININE, SERUM 1.96 mg/dL (0.57-1.11); POTASSIUM 3.1 mmol/L (3.5-5.1)
[2023-04-23] MEDS: SODIUM BICARBONATE 8.4% 50 ML in SODIUM CHLORIDE 0.45% 1,000 ML IV SCH ×2 (06:42→12:29)
[2023-04-23 07:46] VITALS: BP 156/75; PULSE 57; RESP 18; TEMP 98.3; O2SAT 97
[2023-04-23 08:22] VITALS: BP 156/75; PULSE 57; RESP 18; TEMP 98.3; O2SAT 97
[2023-04-23] MEDS: METOPROLOL TARTRATE 25 MG TAB PO SCH (09:00)
[2023-04-23] MEDS ORDERED: HYDRALAZINE HCL25 MG PO (09:51)
[2023-04-23] MEDS ORDERED: SODIUM BICARBO650 MG PO (09:51)
[2023-04-23] MEDS ORDERED: CIPRO250 MG PO (09:51)
[2023-04-23] MEDS ORDERED: POTASSIUM CHLORIDE 20 MEQ TAB CR PO ONE (10:30)
[2023-04-23 11:15] VITALS: BP 136/65; PULSE 56; RESP 17; TEMP 100.2; O2SAT 96
== END 2023-04-23 15:19 | disposition home or self-care (01) | DRG 690 ==
LOC: ER 07:49 → ERHOLD 09:43 → MED/SURG2 12:04
PROVIDERS: ADMIT Internal Medicine; ATTEND Internal Medicine
DX: N39.0 Urinary tract infection, site not specified (principal); E87.20 Acidosis, unspecified; N17.9 Acute kidney failure, unspecified; N18.5 Chronic kidney disease, stage 5; B96.4 Proteus (mirabilis) (morganii) as the cause of diseases classified elsewhere; I12.9 Hypertensive chronic kidney disease with stage 1 through stage 4 chronic kidney disease, or unspecified chronic kidney disease; E11.22 Type 2 diabetes mellitus with diabetic chronic kidney disease; E66.9 Obesity, unspecified; Z68.30 Body mass index [BMI] 30.0-30.9, adult; F31.9 Bipolar disorder, unspecified; R53.1 Weakness; E78.5 Hyperlipidemia, unspecified; M19.90 Unspecified osteoarthritis, unspecified site; Z96.652 Presence of left artificial knee joint; Z96.642 Presence of left artificial hip joint; D63.1 Anemia in chronic kidney disease; Z20.822 Contact with and (suspected) exposure to COVID-19; Z79.899 Other long term (current) drug therapy
CPT/HCPCS: 36415; 74176; 76770; 80048; 80061; 81001; 82010; 82948; 83036; 83735; 84100; 85025; 87086; 87186; 93005; 99284; J0692; J0696; J2405; J7030